=== PATIENT | male | born 1970 | race Caucasian/White ===

== ENCOUNTER 2018-05-28 01:31 | Observation (INO) | payer MEDICARE, MEDICAID, OTHER ==
[2018-05-28] VITALS (15 sets, daily range): BP systolic 143–188; BP diastolic 77–117
[~2018-05-28] VITALS: Ht 170.2 cm; Wt 90.9 kg
[2018-05-28] MEDS ORDERED: CARV3.122 PO (01:51)
[2018-05-28] MEDS ORDERED: LISI1TAB11 PO (01:51)
[2018-05-28] MEDS ORDERED: ATOR80TA PO (01:51)
[2018-05-28] MEDS ORDERED: ketorolac trometh. 30mg/ml inj. IV ONE (02:10)
[2018-05-28] MEDS ORDERED: piperacillin/tazo 3.375gm/50ml 50 ML IV SCH (02:30)
[2018-05-28 02:43] LABS: BASOPHILS # (AUTO) 0.1 X10'3 (0-0.2); BASOPHILS % (AUTO) 0.9 % (0-1); EOSINOPHILS # (AUTO) 0.2 X10'3 (0-0.9); EOSINOPHILS % (AUTO) 1.1 % (0-6); HEMATOCRIT 45.8 % (42.0-52.0); HEMOGLOBIN 15.5 g/dl (14.0-17.9); LYMPHOCYTES # (AUTO) 1.3 X10'3 (1.1-4.8); LYMPHOCYTES % (AUTO) 8.8 % (21-51); MEAN CORPUSCULAR HEMOGLOBIN 29.4 PG (27.0-31.0); MEAN CORPUSCULAR HGB CONC 33.8 % (33.0-36.5); MEAN PLATELET VOLUME 9.6 FL (7.4-10.4); MONOCYTES # (AUTO) 1.2 X10'3 (0-0.9); NEUTROPHILS # (AUTO) 12.4 X10'3 (1.8-7.7); NEUTROPHILS % (AUTO) 81.2 % (42-75); PLATELET COUNT 260 X10'3 (140-440); RED BLOOD COUNT 5.27 X10'6 (4.70-6.10); RED CELL DISTRIBUTION WIDTH 13.8 % (11.5-14.5); WHITE BLOOD COUNT 15.3 X10'3 (4.5-11.0)
[2018-05-28 02:55] LABS: ALANINE AMINOTRANSFERASE 68 U/L (12-78); ALBUMIN 3.6 G/DL (3.4-5.0); ALKALINE PHOSPHATASE 145 IU/L (46-116); ANION GAP 7 (8-16); ASPARTATE AMINO TRANSFERASE 29 U/L (10-37); BILIRUBIN,TOTAL 0.6 MG/DL (0.1-1.0); BLOOD UREA NITROGEN 21 MG/DL (7-18); CALCIUM 9.2 MG/DL (8.5-10.1); CHLORIDE 101 MMOL/L (99-107); CREATININE 1.31 MG/DL (0.60-1.10); GLUCOSE 93 MG/DL (70-104); LIPASE 123 U/L (73-393); POTASSIUM 3.5 MMOL/L (3.5-5.1); SODIUM 139 MMOL/L (135-145); TOTAL CARBON DIOXIDE 30.7 MMOL/L (24-32); TOTAL PROTEIN 7.1 G/DL (6.4-8.2); eGFR 59 ML/MIN
[2018-05-28] MEDS: normal saline 1000ml 1,000 ML IV SCH ×2 (03:32→13:32)
[2018-05-28] MEDS ORDERED: magnesium hydroxide 30ml (MOM) UD suspension PO PRN (03:35)
[2018-05-28] MEDS ORDERED: ondansetron/PF 4mg/2ml inj IV PRN ×2 (03:35→11:00)
[2018-05-28] MEDS ORDERED: mag hydrox/Alum hydrox/simeth 30ml oral suspension PO PRN (03:35)
[2018-05-28] MEDS ORDERED: HYDROcodone/acetaminophen 10/325mg tab PO PRN (03:35)
[2018-05-28] MEDS ORDERED: acetaminophen 325mg tablet PO PRN (03:35)
[2018-05-28] MEDS ORDERED: morphine 4 MG/ML inj SYRINge IV PRN ×3 (03:35→11:00)
[2018-05-28] MEDS ORDERED: HYDROcodone/acetaminophen 5mg/325mg tablet PO PRN ×2 (03:35→11:25)
[2018-05-28] MEDS ORDERED: labetalol 20mg/4ml (5mg/ml) syringe IV ONE (03:35)
[2018-05-28] MEDS ORDERED: morphine 10mg/ml inj. IV PRN (03:35)
[2018-05-28 05:10] LABS: CLARITY,URINE CLEAR (Clear); COLOR,URINE YELLOW (Yellow); GLUCOSE, URINE NEGATIVE (Neg); KETONES,URINE NEGATIVE (Neg); LEUKOCYTE ESTERASE ,URINE NEGATIVE (Neg); NITRITES, URINE NEGATIVE (Neg); OCCULT BLOOD,URINE TRACE-INTACT (Neg); PROTEIN,URINE NEGATIVE (Neg); UROBILINOGEN,URINE 0.2 E.U/dL (0.2-1.0)
[2018-05-28 05:17] LABS: UA COLLECTION TYPE CLN CATCH MIDSTREAM
[2018-05-28 05:19] LABS: BACTERIA,URINE NONE SEEN /HPF (Neg); RBC,URINE 0-2 /HPF (0-2); SQUAMOUS EPITHELIAL CELL,UR NONE SEEN /LPF (FEW); WBC,URINE NONE SEEN /HPF (0-4)
[2018-05-28] MEDS ORDERED: lisinopril 20mg tablet PO SCH (08:00)
[2018-05-28] MEDS ORDERED: carVEDilol 3.125mg tablet PO SCH (08:00)
[2018-05-28] MEDS ORDERED: HYDROchlorothiazide 12.5mg capsule PO SCH (08:00)
[2018-05-28] MEDS ORDERED: LIDOcaine 1% 30ml preserv. free vial ONE (08:45)
[2018-05-28] MEDS ORDERED: BUPIVAcaine/PF 2.5mg/ml (0.25%) 10ml vial ONE (08:45)
[2018-05-28] MEDS ORDERED: morphine 2 MG/ML inj. syringe IV PRN (09:00)
[2018-05-28] MEDS ORDERED: midazolam 2 mg/2 ml injection ONE (10:03)
[2018-05-28] MEDS ORDERED: rocuronium 10mg/ml inj IV ONE (10:04)
[2018-05-28] MEDS ORDERED: propofol inj 20 ML IV ONE (10:04)
[2018-05-28] MEDS ORDERED: fentaNYL /PF 50mcg/ml 5ml ampule ONE (10:04)
[2018-05-28] MEDS ORDERED: sevoflurane 250ml liquid IH ONE (10:06)
[2018-05-28] MEDS ORDERED: ringers solution, lacted 1,000 ML IV SCH (10:58)
[2018-05-28] MEDS ORDERED: proCHLORperazine 10 MG/2 ml inj IV PRN (11:00)
[2018-05-28] MEDS ORDERED: meperidine/PF 25mg/ml syringe IV PRN ×3 (11:00)
[2018-05-28] MEDS ORDERED: piperacillin/tazo 4.5gm/100ml 100 ML IV SCH (11:00)
[2018-05-28] MEDS ORDERED: neostigmine methylsulfate 1 MG/ML 10ml vial ONE (11:20)
[2018-05-28] MEDS ORDERED: glycopyrrolate 0.2mg/ml inj ONE (11:20)
[2018-05-28] MEDS: ketorolac tromethamine 15mg/ml inj. IV SCH ×2 (12:03→16:20)
[2018-05-28] MEDS ORDERED: acetaminophen 325mg tablet PO SCH (14:00)
[2018-05-28] MEDS ORDERED: acetaminophen 325mg tablet PO ONE ×2 (17:10)
[2018-05-28] MEDS ORDERED: carVEDilol 3.125mg tablet PO ONE (17:15)
[2018-05-28] MEDS ORDERED: atorvastatin 20mg tablet PO SCH (21:00)
[2018-05-28] MEDS ORDERED: temazepam 15mg capsule PO PRN (21:00)
== END 2018-05-28 17:45 | disposition home or self-care (01) ==
LOC: ER 01:32 → ED HOLD 03:32 → SUR 3N 07:30
PROVIDERS: ADMIT Hospitalist; ATTEND Hospitalist
DX: K35.80 Unspecified acute appendicitis (principal); I10 Essential (primary) hypertension; I25.10 Atherosclerotic heart disease of native coronary artery without angina pectoris; G47.30 Sleep apnea, unspecified; E78.5 Hyperlipidemia, unspecified; D72.829 Elevated white blood cell count, unspecified; Z95.5 Presence of coronary angioplasty implant and graft; Z95.1 Presence of aortocoronary bypass graft
CPT/HCPCS: 36415; 44970; 71045; 74176; 80053; 81001; 83690; 84484; 85025; 85610; 87070; 93005; 96365; 96375; 96376; 99285; G0378; J1885; J2250; J2543; J2704; J2710; J3010; J3490; J7030; J7120; 88304; A7000